=== PATIENT | female | born 1945 | race American Indian/Alaskan Native ===

== ENCOUNTER 2018-07-11 08:15 | Day surgery (SDC) | payer MEDICARE ==
[2018-07-09 12:11] VITALS: BMI 29.2
[2018-07-11] MEDS ORDERED: Lactated Ringer's 500 ML IV ONE (11:42)
[2018-07-11] MEDS ORDERED: Propofol 10 mg/ml Inj (20 ML) ONE (11:44)
[2018-07-11] MEDS ORDERED: Lidocaine Hydrochloride 5 ML INJ ONE (11:45)
[2018-07-11] MEDS ORDERED: Lactated Ringer's 500 ML IV SCH (12:00)
[2018-07-11 13:06] VITALS: RESP 16
[2018-07-11 14:11] VITALS: BP 131/68; PULSE 65; TEMP 98.1; O2SAT 100
== END 2018-07-11 14:00 | disposition home or self-care (01) ==
LOC: C.ENDO 08:15
PROVIDERS: ATTEND Internal Medicine Gastroenterology
DX: Z12.11 Encounter for screening for malignant neoplasm of colon (principal); K57.10 Diverticulosis of small intestine without perforation or abscess without bleeding; K64.8 Other hemorrhoids
CPT/HCPCS: 45378; J2704; J7120